=== PATIENT | male | born 1990 | race Hispanic/Latino ===

== ENCOUNTER 2022-01-09 08:03 | Emergency (ER) | payer SELFPAY ==
[2022-01-09] MEDS ORDERED: Fentanyl 100 MCG/2 ML VIAL ONE (08:25)
[2022-01-09] MEDS ORDERED: Ketamine 50 MG/ML (10ML VIAL) ONE (09:06)
[2022-01-09] MEDS ORDERED: PROPOFOL 20 ML ONE (09:07)
[2022-01-09] MEDS ORDERED: HYDROcodone/Acetaminophen 5/325 mg Tablet ONE (11:20)
[2022-01-09] MEDS ORDERED: Ibuprofen 200 MG TAB ONE (11:20)
== END 2022-01-09 12:17 | disposition home or self-care (01) ==
LOC: CSHERS 08:03
DX: S52.571A Other intraarticular fracture of lower end of right radius, initial encounter for closed fracture (principal); S52.691A Other fracture of lower end of right ulna, initial encounter for closed fracture; W19.XXXA Unspecified fall, initial encounter
CPT/HCPCS: 25605; 94760; 96374; 99152; J2704; J3010